=== PATIENT | male | born 1945 | race Caucasian/White ===

== ENCOUNTER → 2022-01-15 | Outpatient (CLI) | payer MEDICARE, OTHER ==
[~2022-01-15] MED LIST: AMOXICILLIN 8751 TAB PO; CEPHALEXIN500 M1 PO; COUMADIN4 MG PO; LOPRESSOR 225 MG/TAB PO; LORTAB 5/500 501 TAB PO; MAGIC MOUTHWASH1 M2 PO; METHOTREXA2.5 MG/TAB PO; NORCO 325 MG-51 TAB PO; XARELTO20 MG PO
== END ==
LOC: COL.RAD 07:41
DX: Z12.2 Encounter for screening for malignant neoplasm of respiratory organs (principal); Z87.891 Personal history of nicotine dependence